=== PATIENT | female | born 2000 | race Two or more races ===

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

== ENCOUNTER 2020-04-02 01:49 | Inpatient (IN) | payer MEDICAID, OTHER ==
[~2020-04-02] VITALS: Ht 154.9 cm; Wt 65.0 kg
[2020-04-02] MEDS ORDERED: OXYTOCIN 30U/ 0.9% NaCL 500ML 500 ML IV ONE (08:48)
[2020-04-02] MEDS ORDERED: OXYTOCIN 30U/ 0.9% NaCL 500ML 500 ML IV PRN (08:48)
[2020-04-02] MEDS ORDERED: D5%-LACTATED RINGERS 1,000 ML IV SCH (08:48)
[2020-04-02] MEDS ORDERED: TERBUTALINE 1 MG/ML, 1ML SQ PRN (09:00)
[2020-04-02] MEDS ORDERED: TERBUTALINE 1 MG/ML, 1ML IVPush PRN (09:00)
[2020-04-02] MEDS ORDERED: ONDANSETRON 2MG/ML, 2ML IVPush PRN ×2 (09:00→18:00)
[2020-04-02] MEDS ORDERED: FENTANYL PF 100 MCG/2ML IVPush PRN (09:00)
[2020-04-02] MEDS ORDERED: FENTANYL PF 100 MCG/2ML IV PRN (09:00)
[2020-04-02] MEDS ORDERED: NEWBORN KIT ONE ×2 (09:07→09:12)
[2020-04-02] MEDS ORDERED: LIDOCAINE 1%, 20ML ONE ×2 (09:12)
[2020-04-02] MEDS ORDERED: OXYTOCIN 30U/ 0.9% NaCL 500ML 500 ML ONE (09:12)
[2020-04-02] MEDS ORDERED: MISOPROSTOL 200 MCG TABLET ONE (09:12)
[2020-04-02] MEDS: LACTATED RINGERS 1,000 ML IV SCH ×3 (09:15→17:15)
[2020-04-02 09:29] LABS: BASOPHILS # (AUTO) 0.03 x10^3/uL (0-0.3); BASOPHILS % (AUTO) 0 % (0-1); EOSINOPHILS # (AUTO) 0.02 x10^3/uL (0-0.8); EOSINOPHILS % (AUTO) 0 % (1-7); LYMPHOCYTES # (AUTO) 1.99 x10^3/uL (1-6.1); LYMPHOCYTES % (AUTO) 31 % (22-44); MD NO; MEAN CORPUSCULAR HEMOGLOBIN 27.2 pg (27.0-34.8); MEAN CORPUSCULAR HGB CONC 32.3 g/dL (32.4-35.8); MEAN CORPUSCULAR VOLUME 84.3 fL (80-100); MEAN PLATELET VOLUME 8.4 fL (7.4-10.4); MONOCYTES # (AUTO) 0.63 x10^3/uL (0-1.4); MONOCYTES % (AUTO) 10 % (2-9); NEUTROPHILS # (AUTO) 3.74 x10^3/uL (1.8-8.0); NEUTROPHILS % (AUTO) 59 % (42-75); PLATELET COUNT 262 x10^3/uL (130-400); RED BLOOD COUNT 4.55 x10^6/uL (3.82-5.3); RED CELL DISTRIBUTION WIDTH 13.6 % (9.6-15.2)
[2020-04-02] MEDS ORDERED: FENTANYL PF 100 MCG/2ML ONE (15:42)
[2020-04-02] MEDS ORDERED: BUPIVACAINE 0.25% ONE (16:46)
[2020-04-02] MEDS ORDERED: FENTANYL/BUPIV./NS/PF 250 ML EPIDCONT ONE (16:46)
[2020-04-02] MEDS ORDERED: LACTATED RINGERS 1,000 ML IV SCH (17:31)
[2020-04-02] MEDS ORDERED: FENTANYL/BUPIV./NS/PF 250 ML EPIDCONT SCH (17:31)
[2020-04-02] MEDS ORDERED: EPHEDRINE 50 MG/ML, 1ML IVPush PRN (18:00)
[2020-04-02] MEDS ORDERED: LACTATED RINGERS 1,000 ML IVBOLUS PRN (18:00)
[2020-04-02] MEDS ORDERED: DIPHENHYDRAMINE 50 MG/ML, 1ML IVPush PRN (18:00)
[2020-04-02] MEDS ORDERED: NALOXONE 0.4 MG/ML, 1ML IVPush PRN (18:00)
[2020-04-02] MEDS: OXYTOCIN 30U/ 0.9% NaCL 500ML 500 ML IV SCH (23:53)
[2020-04-03] MEDS ORDERED: MISOPROSTOL 200 MCG TABLET PR PRN
[2020-04-03] MEDS ORDERED: MAGNESIUM HYDROXIDE 8%, 30ML UDC PO PRN
[2020-04-03] MEDS ORDERED: OXYcodone/APAP 5/325MG TABLET PO PRN ×2
[2020-04-03] MEDS ORDERED: ACETAMINOPHEN 325 MG TABLET PO PRN ×2
[2020-04-03] MEDS ORDERED: DIPH,PERTUSS(ACELL),TET VAC/PF NC IM-VACC PRN
[2020-04-03] MEDS ORDERED: SIMETHICONE 80 MG CHEW TAB PO PRN
[2020-04-03] MEDS ORDERED: RHOGAM FROM BLOOD BANK 1 NOTE EA IM/IV ONE
[2020-04-03] MEDS ORDERED: ONDANSETRON 2MG/ML, 2ML IV PRN
[2020-04-03] MEDS ORDERED: IBUPROFEN 600 MG TABLET ONE (00:07)
[2020-04-03] MEDS ORDERED: OXYTOCIN 30U/ 0.9% NaCL 500ML 500 ML ONE (00:08)
[2020-04-03] MEDS: IBUPROFEN 600 MG TABLET PO PRN ×3 (00:11→15:16)
[2020-04-03 03:00] VITALS: BP 110/68
[2020-04-03 07:59] VITALS: BP 122/80
[2020-04-03 08:17] LABS: MEAN CORPUSCULAR HEMOGLOBIN 27.9 pg (27.0-34.8); MEAN CORPUSCULAR HGB CONC 33.1 g/dL (32.4-35.8); MEAN CORPUSCULAR VOLUME 84.3 fL (80-100); MEAN PLATELET VOLUME 8.5 fL (7.4-10.4); PLATELET COUNT 227 x10^3/uL (130-400); RED BLOOD COUNT 4.07 x10^6/uL (3.82-5.3); RED CELL DISTRIBUTION WIDTH 13.6 % (9.6-15.2)
[2020-04-03] MEDS: DOCUSATE 100 MG CAPSULE PO PRN ×2 (08:18→20:05)
[2020-04-03] MEDS: PRENATAL VIT/IRON/FA 1 EACH TABLET PO SCH (08:18)
[2020-04-03 08:44] LABS: BASOPHILS # (AUTO) 0.03 x10^3/uL (0-0.3); BASOPHILS % (AUTO) 0 % (0-1); EOSINOPHILS % (AUTO) 0 % (1-7); LYMPHOCYTES # (AUTO) 1.62 x10^3/uL (1-6.1); LYMPHOCYTES % (AUTO) 13 % (22-44); MD SCAN; MONOCYTES # (AUTO) 0.73 x10^3/uL (0-1.4); MONOCYTES % (AUTO) 6 % (2-9); NEUTROPHILS # (AUTO) 10.53 x10^3/uL (1.8-8.0); NEUTROPHILS % (AUTO) 82 % (42-75)
[2020-04-03] MEDS: OXYTOCIN 30U/ 0.9% NaCL 500ML 500 ML IV SCH ×2 (09:53→19:53)
[2020-04-03 12:30] VITALS: BP 113/73
[2020-04-03 17:16] VITALS: BP 100/62
[2020-04-03 19:41] VITALS: BP 100/64
[2020-04-04 00:20] VITALS: BP 110/65
[2020-04-04] MEDS: IBUPROFEN 600 MG TABLET PO PRN ×3 (02:58→15:29)
[2020-04-04 04:30] VITALS: BP 95/60
[2020-04-04] MEDS: OXYTOCIN 30U/ 0.9% NaCL 500ML 500 ML IV SCH (05:53)
[2020-04-04 07:30] VITALS: BP 120/77
[2020-04-04] MEDS: PRENATAL VIT/IRON/FA 1 EACH TABLET PO SCH (09:19)
[2020-04-04] MEDS: DOCUSATE 100 MG CAPSULE PO PRN (09:19)
== END 2020-04-04 15:40 | disposition home or self-care (01) | DRG 806 ==
LOC: LDOP 01:49 → LDIP 03:00 → OBSVTOIN 03:00 → 2NW 04-03 02:45
PROVIDERS: ADMIT Student in an Organized Health Care Education/Training Program; ATTEND Student in an Organized Health Care Education/Training Program
PROC: 10E0XZZ Delivery of Products of Conception, External Approach (ICD-10-PCS; principal; 2020-04-02)
PROC: 3E0234Z Introduction of Serum, Toxoid and Vaccine into Muscle, Percutaneous Approach (ICD-10-PCS; 2020-04-02)
PROC: 3E0R3BZ Introduction of Anesthetic Agent into Spinal Canal, Percutaneous Approach (ICD-10-PCS; 2020-04-02)
PROC: 00HU33Z Insertion of Infusion Device into Spinal Canal, Percutaneous Approach (ICD-10-PCS; 2020-04-02)
PROC: 0UQGXZZ Repair Vagina, External Approach (ICD-10-PCS; 2020-04-02)
DX: O76 Abnormality in fetal heart rate and rhythm complicating labor and delivery (principal); O71.4 Obstetric high vaginal laceration alone; Z37.0 Single live birth; O99.52 Diseases of the respiratory system complicating childbirth; J45.909 Unspecified asthma, uncomplicated; Z3A.37 37 weeks gestation of pregnancy; Z83.3 Family history of diabetes mellitus; Z23 Encounter for immunization
CPT/HCPCS: 36415; 76819; 82803; 85025; 86592; 86850; 86900; 87635; 89060; G0378; J3010; J2590; J7120; Q0114